=== PATIENT | male | born 1970 | race Caucasian/White ===

== ENCOUNTER → 2020-08-09 | Outpatient (CLI) | payer OTHER ==
[~2020-08-09] MED LIST: ELIQUIS 5 MG TAB5 MG PO; FLOMAX0.4 MG PO; MULTAQ400 MG PO; PERCOCET 5/325 T1 EA PO
== END ==
LOC: EXRD 11:37
DX: M25.552 Pain in left hip (principal); M25.551 Pain in right hip
CPT/HCPCS: 73522